=== PATIENT | female | born 1955 | race African-American/Black ===

== ENCOUNTER 2017-10-19 06:47 | Emergency (ER) | payer OTHER ==
[~2017-10-19] VITALS: Ht 165.1 cm; Wt 90.7 kg
[~2017-10-19 06:47] MED LIST: ACETAMINOPHEN-1 EAC1 PO; ALDACTONE50 MG PO; ANUSOL-HC25 MG RECTAL; AZITHROMYCIN 2250 MG PO; BENTYL20 MG PO; CIPROFLOXACIN500 M1 PO; COLACE1 EAC1 RC; DIAZEPAM2 MG PO; ECONOPRED PLUS10 M1 OP; FLAGYL500 MG PO; HYDROCHLOROTH12.5 MG; HYDROCHLOROTHIA25 M1 PO; HYDROCODONE-AP1 EAC6 PO; HYDROCORTISONE30 G9 RECTAL; IBUPROFEN 200200 M1 PO; IBUPROFEN 800800 M1 PO; KEFLEX500 MG PO; LISINOPRIL10 MG PO; LISINOPRIL20 MG PO; LORTAB 5 MG/5001 TA1 PO; LORTAB 5 MG/5001 TAB PO; MACROBID 100 M100 M1 PO; METOPROLOL 50 M50 M1 PO; MICROZIDE12.5 MG PO; MUCINEX600 MG PO; NEXIUM40 MG PO; NORCO 5-325 TA1 EACH PO; NORCO 7.5-3251 EACH PO; NORFLEX100 MG PO; ONDANSETRON HCL4 M2 PO; PERCOCET 5-3251 EACH PO; PRED FORTE 1% EY5 M1 OP; PRED-FORTE OPHTH1 M1 OP; SENOKOT-S1 TA1 PO; TORADOL 10 MG T10 MG PO; TRAMADOL 50 MG50 MG PO; VALIUM5 MG PO; XANAX 0.25 MG0.25 MG PO; ZOFRAN ODT4 MG PO; ZPAK PO
[2017-10-19] MEDS ORDERED: OCEAN104 ML NASAL (07:14)
[2017-10-19] MEDS ORDERED: MUCINEX DM ER1 EACH PO (07:15)
[2017-10-19 08:13] LABS: ABSOLUTE NEUTROPHILS 2.7 thou/uL (1.4-8.2); EOSINOPHILS 5.6 % (0.0-3.0); HEMATOCRIT 44.2 % (37.0-47.0); HEMOGLOBIN 14.6 gm/dL (12.0-15.0); LYMPHOCYTES 26.2 % (24.0-44.0); MCH 28.7 pg (26.0-34.0); MCHC 33.1 g/dL (28.0-37.0); MCV 86.6 fL (80.0-100.0); PLATELET COUNT 277 thou/uL (150-400); POLYS 55.2 % (36.0-66.0); RDW 14.3 % (10.5-14.5); WBC 4.9 thou/uL (4.0-11.0)
[2017-10-19 08:15] LABS: CALCIUM 9.8 mg/dL (8.5-10.1); CREATININE 1.1 mg/dL (0.6-1.0); POTASSIUM 4.4 mmol/L (3.5-5.1)
[2017-10-19] MEDS ORDERED: BENTYL 20 MG TA20 M1 PO (09:31)
[2017-10-19 09:36] VITALS: BP 130/78
== END 2017-10-19 09:36 | disposition home or self-care (01) ==
LOC: ER 06:47
PROVIDERS: Emergency Medicine
DX: K59.00 Constipation, unspecified (principal); T50.905A Adverse effect of unspecified drugs, medicaments and biological substances, initial encounter; Y92.9 Unspecified place or not applicable; R10.9 Unspecified abdominal pain; I10 Essential (primary) hypertension; F17.210 Nicotine dependence, cigarettes, uncomplicated; Z88.2 Allergy status to sulfonamides

== ENCOUNTER 2018-03-16 14:40 | Emergency (ER) | payer OTHER ==
[~2018-03-16] VITALS: Ht 165.1 cm; Wt 88.5 kg
[~2018-03-16 14:40] MED LIST changes: +BENTYL 20 MG TA20 M1 PO; +MUCINEX DM ER1 EACH PO; +OCEAN104 ML NASAL
[2018-03-16 14:56] VITALS: BP 148/70
[2018-03-16] MEDS ORDERED: NORCO 5-325 TA1 EACH PO (16:21)
== END 2018-03-16 17:32 | disposition home or self-care (01) ==
LOC: ER 14:40
DX: M79.662 Pain in left lower leg (principal); I10 Essential (primary) hypertension; F17.210 Nicotine dependence, cigarettes, uncomplicated

== ENCOUNTER 2018-09-24 12:26 | Emergency (ER) | payer OTHER ==
[~2018-09-24] VITALS: Ht 165.1 cm; Wt 90.7 kg
[2018-09-24 12:27] VITALS: BP 155/72
[2018-09-24] MEDS ORDERED: HYDROCHLOROTH12.5 M1 PO (12:33)
== END 2018-09-24 14:39 | disposition left against medical advice (07) ==
LOC: ER 12:26
DX: M79.672 Pain in left foot (principal); Z53.21 Procedure and treatment not carried out due to patient leaving prior to being seen by health care provider

== ENCOUNTER 2019-05-04 22:46 | Emergency (ER) | payer OTHER ==
[~2019-05-04] VITALS: Ht 165.1 cm; Wt 90.7 kg
[~2019-05-04 22:46] MED LIST changes: +HYDROCHLOROTH12.5 M1 PO
[2019-05-04 23:57] LABS: BASOPHILS 1.1 % (0.0-2.0); HEMATOCRIT 41.2 % (37.0-47.0); HEMOGLOBIN 13.4 gm/dL (12.0-15.0); LYMPHOCYTES 22.7 % (24.0-44.0); MCH 28.5 pg (26.0-34.0); MCHC 32.6 g/dL (28.0-37.0); MCV 87.4 fL (80.0-100.0); MONOCYTES 11.7 % (1.0-8.0); PLATELET COUNT 288 thou/uL (150-400); POLYS 60.5 % (36.0-66.0); RBC 4.71 mil/uL (4.20-5.00); RDW 14.8 % (10.5-14.5)
[2019-05-05 00:03] LABS: ANION GAP 12 mmol/L (7-16); BUN 11 mg/dL (7-18); CHLORIDE 103 mmol/L (98-107); CO2 25 mmol/L (21-32); CREATININE 0.9 mg/dL (0.6-1.0); GLUCOSE 105 mg/dL (74-106); POTASSIUM 3.8 mmol/L (3.5-5.1); SODIUM 140 mmol/L (136-145)
[2019-05-05] MEDS ORDERED: LISINOPRIL-HCT1 EACH PO (00:09)
[2019-05-05] MEDS ORDERED: PRED FORTE 1% EY5 M1 OPHTHALMIC (00:10)
[2019-05-05 00:14] LABS: ALBUMIN 3.3 g/dL (3.4-5.0); SGOT 16 U/L (15-37); SGPT 27 U/L (30-65); TOTAL BILIRUBIN 0.4 mg/dL (<0.1-1.0); TOTAL PROTEIN 7.4 g/dL (6.4-8.2); TROPONIN-I <0.06 ng/mL (<0.06)
[2019-05-05 01:44] VITALS: BP 149/83
[2019-05-05] MEDS ORDERED: PEPCID40 MG PO (02:07)
[2019-05-05] MEDS ORDERED: PROTONIX40 M2 PO (02:07)
--- NOTE | 2019-05-05 09:04 | EKG ---
[place] [address] [facility] [place] [address] ELECTROCARDIOGRAM REPORT Name: ART WEBER Room #: DEP [facility]#: [id number] Admission: 05/04/19 Attend Phys: Discharge: 05/05/19 Date of : 53 Report #: [id number] THIS REPORT FOR: //name// [facility] ED Test Date: 2019-05-04 Test Time: 23:20:06 Pat Name: ART WEBER Department: Room: Gender: F Front Desk Admin: DAVID : 1955 Requested By: Harry Shay Order Number: [id number] MD: Jarvis Forrest Measurements Intervals [place] Rate: 66 P: 68 MO: 140 QRS: 3 QRSD: 104 T: 51 QT: 408 QTc: 428 Interpretive Statements Sinus rhythm Early R-wave progression Baseline wander in lead(s) V3 Compared to ECG 05/03/2016 13:16:57 No significant changes Electronically Signed On 05-05-2019 9:04:05 [employer] by Jarvis Forrest [email or web address] <ELECTRONICALLY SIGNED> By: Jarvis Forrest MD, [facility] 1204 19 19 Jarvis Forrest MD, [facility] /EPI
== END 2019-05-05 02:14 | disposition home or self-care (01) ==
LOC: ER 22:46
PROVIDERS: Physician Assistant
DX: K21.9 Gastro-esophageal reflux disease without esophagitis (principal); I10 Essential (primary) hypertension; E66.9 Obesity, unspecified; F17.210 Nicotine dependence, cigarettes, uncomplicated; Z68.33 Body mass index [BMI] 33.0-33.9, adult; Z88.2 Allergy status to sulfonamides

== ENCOUNTER 2020-07-29 13:24 | Emergency (ER) | payer OTHER ==
[~2020-07-29] VITALS: Ht 165.1 cm; Wt 92.1 kg
[~2020-07-29 13:24] MED LIST changes: +LISINOPRIL-HCT1 EACH PO; +PEPCID40 MG PO; +PRED FORTE 1% EY5 M1 OPHTHALMIC; +PROTONIX40 M2 PO
[2020-07-29 13:36] VITALS: BP 142/79
[2020-07-29] MEDS ORDERED: TYLENOL325 M1 PO (14:15)
== END 2020-07-29 14:23 | disposition home or self-care (01) ==
LOC: ER 13:24
DX: S09.90XA Unspecified injury of head, initial encounter (principal); I10 Essential (primary) hypertension; F17.210 Nicotine dependence, cigarettes, uncomplicated; Z79.899 Other long term (current) drug therapy; Z88.2 Allergy status to sulfonamides; W22.8XXA Striking against or struck by other objects, initial encounter; Y93.89 Activity, other specified; Y92.89 Other specified places as the place of occurrence of the external cause; Y99.8 Other external cause status